=== PATIENT | male | born 1930 | race Caucasian/White ===

== ENCOUNTER 2018-12-10 10:13 | Day surgery (SDC) | payer MEDICARE, OTHER ==
[~2018-12-10] VITALS: Ht 177.8 cm; Wt 90.0 kg
[2018-12-10] MEDS ORDERED: DILT240C PO (11:13)
[2018-12-10] MEDS ORDERED: LISI40TA PO (11:13)
[2018-12-10] MEDS ORDERED: CHOL200074 PO (11:14)
[2018-12-10] MEDS ORDERED: OMEG-123 PO (11:15)
[2018-12-10 11:17] VITALS: BP 148/75
[2018-12-10] MEDS ORDERED: VERAPAMIL 2.5 MG/ML, 2ML ONE (12:45)
[2018-12-10] MEDS ORDERED: LIDOCAINE 2%, 20ML ONE (12:45)
[2018-12-10] MEDS ORDERED: BIVALIRUDIN 250 MG ONE (12:45)
[2018-12-10] MEDS ORDERED: FENTANYL PF 100 MCG/2ML ONE (12:45)
[2018-12-10] MEDS ORDERED: TICAGRELOR 90 MG TABLET ONE (12:45)
[2018-12-10] MEDS ORDERED: HEPARIN 1,000 UNITS/ML, 10ML ONE (12:45)
[2018-12-10] MEDS ORDERED: MIDAZOLAM 1 MG/ML, 5ML ONE (12:45)
[2018-12-10] MEDS ORDERED: SODIUM CHLORIDE 0.9% 1,000 ML IV SCH (14:09)
== END 2018-12-10 18:00 | disposition home or self-care (01) ==
LOC: CACL 10:13
PROVIDERS: ATTEND Internal Medicine Cardiovascular Disease
DX: I25.10 Atherosclerotic heart disease of native coronary artery without angina pectoris (principal); F17.210 Nicotine dependence, cigarettes, uncomplicated; E78.5 Hyperlipidemia, unspecified; I10 Essential (primary) hypertension; I35.0 Nonrheumatic aortic (valve) stenosis
CPT/HCPCS: 93306; 93454; 99156; 99157; C1760; C1769; C1894; J1644; J2250; J3010; Q9967; J0583

== ENCOUNTER → 2018-12-30 | Outpatient (CLI) | payer MEDICARE ==
[~2018-12-30] MED LIST: CHOL200074 PO; DILT240C PO; LISI40TA PO; OMEG-123 PO; REGADENOSON 0.4 MG/5 ML SYRINGE ONE
== END | disposition home or self-care (01) ==
LOC: CFH 13:01
PROVIDERS: ATTEND Internal Medicine Cardiovascular Disease
DX: I25.84 Coronary atherosclerosis due to calcified coronary lesion (principal)
CPT/HCPCS: 78452; 93017; A9502; J2785

== ENCOUNTER 2019-01-20 12:05 | Inpatient (IN) | payer MEDICARE ==
[~2019-01-20] VITALS: Ht 177.8 cm; Wt 82.9 kg
[~2019-01-20 12:05] MED LIST changes: -"\\\"STATIN\\\"" PO; -CALCIUM PO; -ISOS30TA8 PO
[2019-01-20] MEDS ORDERED: ASPIRIN 81 MG TABLET CHEW PO ONE (12:30)
[2019-01-20] MEDS ORDERED: SODIUM CHLORIDE FLUSH 10ML SYR IVF ONE (12:30)
[2019-01-20] MEDS ORDERED: ASPIRIN 81 MG TABLET CHEW ONE (12:42)
[2019-01-20 12:46] LABS: BASOPHILS # (AUTO) 0.03 x10^3/uL (0-0.1); BASOPHILS % (AUTO) 0 % (0-1); EOSINOPHILS # (AUTO) 0.27 x10^3/uL (0-0.4); EOSINOPHILS % (AUTO) 3 % (1-7); LYMPHOCYTES # (AUTO) 0.87 x10^3/uL (1-3.4); LYMPHOCYTES % (AUTO) 9 % (22-44); MD NO; MEAN CORPUSCULAR HEMOGLOBIN 28.9 pg (27.5-34.5); MEAN CORPUSCULAR HGB CONC 32.7 g/dL (33.2-36.2); MEAN CORPUSCULAR VOLUME 88.3 fL (81-97); MEAN PLATELET VOLUME 8.5 fL (7.4-10.4); MONOCYTES # (AUTO) 0.65 x10^3/uL (0.2-0.8); MONOCYTES % (AUTO) 7 % (2-9); NEUTROPHILS # (AUTO) 8.03 x10^3/uL (1.8-6.8); NEUTROPHILS % (AUTO) 82 % (42-75); PLATELET COUNT 708 x10^3/uL (130-400); RED BLOOD COUNT 4.78 x10^6/uL (4.38-5.82); RED CELL DISTRIBUTION WIDTH 16.4 % (9.4-14.8)
[2019-01-20 12:51] LABS: INTERNATIONAL NORMALIZED RATIO 1.14 (0.93-1.1); PROTHROMBIN TIME 11.9 Seconds (9.6-11.5)
--- NOTE | 2019-01-20 12:53 | NUR ---
PT ON HEART MONITOR, BP CUFF, PULSE OX. IV STARTED, LABS DRAWN WITH START. ASA GIVEN PER ERP ORDER. PT UPDATED ON POC. CALL TO NETO, NO ANSWER-MESSAGE LEFT PER PT REQUEST. NETO FAJARDO [phone] Addendum: 01/20/19 at 1255 by COURTNEY PT DENIES PAIN, SOB OR OTHER SX AT THIS TIME. CALL LIGHT WITHIN REACH, WARM BLANKET PROVIDED.
[2019-01-20 12:56] LABS: ALBUMIN 4.2 g/dL (3.4-5.0); ANION GAP 10 mmol/L (5-15); CALCIUM 9.9 mg/dL (8.5-10.1); CHLORIDE 105 mmol/L (98-107)
[2019-01-20 13:00] LABS: TROPONIN I < 0.015 ng/mL (0.000-0.045)
[2019-01-20] MEDS ORDERED: CALCIUM PO (13:43)
[2019-01-20] MEDS ORDERED: "\\\"STATIN\\\"" PO (13:43)
[2019-01-20] MEDS ORDERED: ONDANSETRON 2MG/ML, 2ML IVPush PRN (14:00)
[2019-01-20] MEDS ORDERED: ONDANSETRON ODT 4 MG PO PRN (14:00)
[2019-01-20] MEDS ORDERED: LABETALOL 5MG/ML, 20ML IV PRN (14:00)
--- NOTE | 2019-01-20 14:01 | NUR ---
PT AND FAMILY UPDATED ON LABS, XRAY. NOTED ST DEPRESSION BY SUPERVISOR FABRICATION DEPARTMENT, REPEAT EKG COMPLETED AND TO ERP. CALL LIGHT WITHIN REACH. MED REC COMPLETED. VSS.
[2019-01-20] MEDS: ASPIRIN 81 MG TABLET EC PO SCH (14:13)
[2019-01-20 14:50] LABS: FREE T4 (FREE THYROXINE) 1.16 ng/dL (0.76-1.46); TROPONIN I 0.035 ng/mL (0.000-0.045)
--- NOTE | 2019-01-20 15:33 | NUR ---
PT RESTING QUIETLY WITH FAMILY AT BS. CONTINUE TO AWAIT ADMIT BED. CARDIAC MEAL TRAY ORDERED.
--- NOTE | 2019-01-20 16:30 | NUR ---
PT AND FAMILY UPDATED ON POC. PER [employer] TECHNICAL OFFICER, PT TO GO TO CCU AFTER 1900 FOR CARDTELE OVERFLOW. PT PROVIDED CARDIAC DINNER TRAY. VSS.
--- NOTE | 2019-01-20 18:14 | NUR ---
URINAL EMPTIED, RECORDED ON OUTPUT.
[2019-01-20 20:30] VITALS: BP 142/67
[2019-01-20] MEDS: LISINOPRIL 40 MG TABLET PO SCH (21:35)
[2019-01-21 02:00] VITALS: BP 122/74
[2019-01-21 04:45] LABS: BASOPHILS # (AUTO) 0.01 x10^3/uL (0-0.1); BASOPHILS % (AUTO) 0 % (0-1); EOSINOPHILS % (AUTO) 1 % (1-7); LYMPHOCYTES # (AUTO) 1.11 x10^3/uL (1-3.4); LYMPHOCYTES % (AUTO) 12 % (22-44); MD NO; MEAN CORPUSCULAR HEMOGLOBIN 29.2 pg (27.5-34.5); MEAN CORPUSCULAR HGB CONC 32.6 g/dL (33.2-36.2); MEAN CORPUSCULAR VOLUME 89.6 fL (81-97); MEAN PLATELET VOLUME 8.6 fL (7.4-10.4); MONOCYTES # (AUTO) 0.74 x10^3/uL (0.2-0.8); MONOCYTES % (AUTO) 8 % (2-9); NEUTROPHILS # (AUTO) 7.52 x10^3/uL (1.8-6.8); NEUTROPHILS % (AUTO) 79 % (42-75); PLATELET COUNT 651 x10^3/uL (130-400); RED BLOOD COUNT 4.65 x10^6/uL (4.38-5.82); RED CELL DISTRIBUTION WIDTH 15.9 % (9.4-14.8)
[2019-01-21 04:49] LABS: ALBUMIN 3.7 g/dL (3.4-5.0); ANION GAP 7 mmol/L (5-15); CALCIUM 9.7 mg/dL (8.5-10.1); CHLORIDE 106 mmol/L (98-107)
[2019-01-21 05:03] LABS: ALANINE AMINOTRANSFERASE 15 U/L (12-78); ALKALINE PHOSPHATASE 44 U/L (45-117); BILIRUBIN,TOTAL 0.8 mg/dL (0.2-1.0); CREATININE 1.53 mg/dL (0.7-1.3); TOTAL PROTEIN 6.6 g/dL (6.4-8.2)
[2019-01-21] MEDS: ASPIRIN 81 MG TABLET EC PO SCH (06:20)
[2019-01-21 07:40] VITALS: BP 151/82
[2019-01-21] MEDS: LISINOPRIL 40 MG TABLET PO SCH (07:43)
[2019-01-21] MEDS ORDERED: CHOLECALCIFEROL 1,000 UNIT TABLET PO SCH (09:00)
[2019-01-21] MEDS ORDERED: ISOSORBIDE MONONITRATE ER 30 MG TABLET PO SCH (13:00)
[2019-01-21] MEDS ORDERED: ISOS30TA8 PO (13:14)
[2019-01-21 13:51] VITALS: BP 136/78
== END 2019-01-21 16:02 | disposition home health service (06) | DRG 302 ==
LOC: ED 13:48 → OBSVTOIN 13:49 → EDIP 13:49 → ED 13:54 → CCU 20:05 → DCLOUNGE 01-21 15:54
PROVIDERS: ADMIT Hospitalist; ATTEND Hospitalist
DX: I25.110 Atherosclerotic heart disease of native coronary artery with unstable angina pectoris (principal); N17.0 Acute kidney failure with tubular necrosis; E87.1 Hypo-osmolality and hyponatremia; E11.22 Type 2 diabetes mellitus with diabetic chronic kidney disease; E78.5 Hyperlipidemia, unspecified; I13.10 Hypertensive heart and chronic kidney disease without heart failure, with stage 1 through stage 4 chronic kidney disease, or unspecified chronic kidney disease; I25.2 Old myocardial infarction; I27.20 Pulmonary hypertension, unspecified; I35.0 Nonrheumatic aortic (valve) stenosis; N18.9 Chronic kidney disease, unspecified; Z79.899 Other long term (current) drug therapy; Z80.3 Family history of malignant neoplasm of breast; Z82.49 Family history of ischemic heart disease and other diseases of the circulatory system; Z90.5 Acquired absence of kidney
CPT/HCPCS: 36415; 71045; 80048; 80053; 82040; 83735; 84100; 84439; 84443; 84484; 85025; 85610; 87081; 93005; G0378

== ENCOUNTER → 2019-01-20 | Outpatient (CLI) | payer MEDICARE ==
[~2019-01-20] MED LIST changes: +"\\\"STATIN\\\"" PO; +CALCIUM PO; +ISOS30TA8 PO; -REGADENOSON 0.4 MG/5 ML SYRINGE ONE
== END | disposition home or self-care (01) ==
LOC: CVU 11:33
PROVIDERS: ATTEND Internal Medicine Cardiovascular Disease
DX: Z02.9 Encounter for administrative examinations, unspecified (principal)